=== PATIENT | female | born 1965 | race Caucasian/White ===

== ENCOUNTER 2018-11-26 13:47 | Outpatient (REF) | payer OTHER, SELFPAY ==
[2018-11-26 21:54] LABS: ALT 32 U/L (12-78); AST 18 U/L (15-37); Albumin 3.5 g/dL (3.4-5.0); Alkaline Phosphatase 71 U/L (46-116); Anion Gap 9.6 mmol/L (3-11); BUN 15 mg/dL (7-18); Bilirubin, Total 0.3 mg/dL (0.2-1.0); CO2 27.4 mmol/L (21.0-32.0); CREATININE 0.78 mg/dL (0.55-1.02); Calcium 9.6 mg/dL (8.5-10.1); Chloride 101 mmol/L (98-107); Cholesterol 140 mg/dL (50-200); Glucose 144 mg/dL (70-100); HDL Cholesterol 41 mg/dL (40-60); LDL CHOLESTEROL 89 mg/dL (<100); Sodium 138 mmol/L (136-145); TSH 1.15 uIU/mL (0.358-3.74); Total Protein 7.7 g/dL (6.4-8.2); Triglyceride 96 mg/dL (30-150)
== END 2018-11-26 14:07 ==
LOC: NCHCN 13:47
PROVIDERS: PCP Family Medicine; Visit Provider Family Medicine
DX: I10 Essential (primary) hypertension (principal); E66.01 Morbid (severe) obesity due to excess calories
CPT/HCPCS: 80053; 80061; 83721; 84443

== ENCOUNTER 2020-07-20 09:58 | Outpatient (REF) | payer OTHER, SELFPAY ==
--- NOTE | 2020-07-20 10:00 | PAPFT_PTH ---
PATIENT: Jess Domingo LOC: [facility]#:[id number] AGE/SX: 55/F ROOM: RE07/20/[address]: Hermila Giron : 1965 BED: DIS: 07/20/2020 SPEC #: [id number] RECD: 07/23/20 13:08 STATUS: SHAMEKA RESadia #: [id number] CA: 07/20/20 10:[address]: Hermila Giron DEPT: [facility] Cytology RECD BY: Elizabeth Giles Tissues: 1 - CX/ENDOCX FOR PAP SMEARS Procedures: PAP THIN PREP/[facility] Screening HPV DNA PROBE Comments: [id number] ([id number] GRAFORD#)
[2020-07-20 22:04] LABS: ALT 34 U/L (14-59); AST 23 U/L (15-37); Albumin 3.6 g/dL (3.4-5.0); Alkaline Phosphatase 81 U/L (46-116); Anion Gap 7.2 mmol/L (3-11); BUN 14 mg/dL (7-18); Bilirubin, Total 0.3 mg/dL (0.2-1.0); CO2 28.8 mmol/L (21.0-32.0); CREATININE 0.88 mg/dL (0.55-1.02); Chloride 102 mmol/L (98-107); Glucose 179 mg/dL (74-106); Potassium 4.2 mmol/L (3.5-5.1); Sodium 138 mmol/L (136-145); Total Protein 7.7 g/dL (6.4-8.2)
[2020-07-20 22:09] LABS: Hemoglobin A1C 7.8 % (<5.7)
[2020-07-20 22:35] LABS: COMMENT (LAB VIEW ONLY) 38.91 mg/dL; Microalb ug/mg Crea 4.1 ug/mg Cr
[2020-07-20 22:36] LABS: Calculated LDL 82 mg/dL (<100); Cholesterol 141 mg/dL (<200); HDL Cholesterol 39 mg/dL (40-60); Triglyceride 103 mg/dL (<150)
[2020-07-20 23:17] LABS: Vitamin D 25 Total 28.7 ng/ml (30-100)
== END 2020-07-20 10:18 ==
LOC: NCHCN 09:58
PROVIDERS: PCP Family Medicine; Visit Provider Family Medicine
DX: Z00.00 Encounter for general adult medical examination without abnormal findings (principal); I10 Essential (primary) hypertension; E11.9 Type 2 diabetes mellitus without complications; E78.5 Hyperlipidemia, unspecified; R87.610 Atypical squamous cells of undetermined significance on cytologic smear of cervix (ASC-US); R87.810 Cervical high risk human papillomavirus (HPV) DNA test positive; E66.01 Morbid (severe) obesity due to excess calories; E66.8 Other obesity
CPT/HCPCS: 80053; 80061; 82306; 88142; 82043; 82570; 83036; 87624

== ENCOUNTER 2020-10-26 17:39 | Outpatient (REF) | payer OTHER, SELFPAY ==
--- NOTE | 2020-10-26 15:00 | ENDOMET_PTH ---
PATIENT: Jess Domingo LOC: [facility] U#:[id number] AGE/SX: 55/F ROOM: RE10/26/[address]: Hermila Giron : 1965 BED: DIS: 10/26/2020 SPEC #: [id number] RECD: 10/29/20 12:29 STATUS: SHAMEKA RESadia #: [id number] CA: 10/26/20 15:[address]: Hermila Giron DEPT: Surgical Specimen RECD BY: Elizabeth Giles Tissues: 1 - ENDOMETRIUM BX/MARIA ESTHER Procedures: GROSS AND MICRO LEVEL 4 Comments: [id number]
== END 2020-10-26 17:40 | disposition home or self-care (01) ==
LOC: NCHCN 17:39
PROVIDERS: PCP Family Medicine; Visit Provider Family Medicine
DX: R87.89 Other abnormal findings in specimens from female genital organs (principal)
CPT/HCPCS: 88305

== ENCOUNTER 2021-07-30 17:47 | Outpatient (REF) | payer OTHER, SELFPAY ==
--- NOTE | 2021-07-30 15:50 | PAPFT_PTH ---
PATIENT: Jess Domingo LOC: [facility] U#:[id number] AGE/SX: 56/F ROOM: RE07/30/[address]: Hermila Giron : 1965 BED: DIS: 07/30/2021 SPEC #: [id number] RECD: 07/31/21 12:53 STATUS: SHAMEKA REQ #: [id number] CA: 07/30/21 15:[address]: Hermila Giron [facility] Cytology RECD BY: Elizabeth Giles Tissues: 1 - CX/ENDOCX FOR PAP SMEARS Procedures: PAP THIN PREP/[facility] Screening HPV DNA PROBE Comments: [id number] (HPV 16 & 18/45)
== END 2021-07-30 17:48 | disposition home or self-care (01) ==
LOC: LBN 17:47
PROVIDERS: PCP Family Medicine; Visit Provider Family Medicine
DX: Z12.4 Encounter for screening for malignant neoplasm of cervix (principal); Z11.51 Encounter for screening for human papillomavirus (HPV); R87.810 Cervical high risk human papillomavirus (HPV) DNA test positive
CPT/HCPCS: 88142; 87624

== ENCOUNTER 2022-01-01 13:51 | Outpatient (REF) | payer OTHER, SELFPAY ==
[2022-01-01 22:40] LABS: Anion Gap 9.4 mmol/L (3-11); BUN 17 mg/dL (7-18); CO2 27.6 mmol/L (21.0-32.0); CREATININE 0.7 mg/dL (0.55-1.02); Calcium 9.1 mg/dL (8.5-10.1); Chloride 102 mmol/L (98-107); Glucose 203 mg/dL (74-106); Potassium 4.3 mmol/L (3.5-5.1); Sodium 139 mmol/L (136-145)
== END 2022-01-01 13:52 | disposition home or self-care (01) ==
LOC: NCHCN 13:51
PROVIDERS: PCP Family Medicine; Visit Provider Family Medicine
DX: Z79.899 Other long term (current) drug therapy (principal)
CPT/HCPCS: 80048

== ENCOUNTER 2022-04-09 21:02 | Outpatient (REF) | payer OTHER, SELFPAY ==
[2022-04-09 22:13] LABS: COMMENT (LAB VIEW ONLY) 49.92 mg/dL; Microalb ug/mg Crea 6.6 ug/mg Cr
== END 2022-04-09 21:03 | disposition home or self-care (01) ==
LOC: NCHCN 21:02
PROVIDERS: PCP Family Medicine; Visit Provider Family Medicine
DX: E11.8 Type 2 diabetes mellitus with unspecified complications (principal)
CPT/HCPCS: 82043; 82570

== ENCOUNTER 2022-11-05 10:48 | Outpatient (REF) | payer OTHER, SELFPAY ==
--- NOTE | 2022-11-05 17:50 | PAPFT_PTH ---
PATIENT: Jess Domingo LOC: [facility]#:[id number] AGE/SX: 57/F ROOM: RE11/05/[address]: Hermila Giron : 1965 BED: DIS: 11/05/2022 SPEC #: [id number] RECD: 11/06/22 12:40 STATUS: SHAMEKA REQ #: [id number] CA: 11/05/22 17:[address]: Hermila Giron DEPT: [facility] Cytology RECD BY: Elizabeth Giles Tissues: 1 - CX/ENDOCX FOR PAP SMEARS Procedures: PAP THIN PREP/UVM Screening HPV DNA PROBE Comments: [id number] (HPV 16 & 18/45)
--- OUTSIDE RECORDS SUMMARY | 2022-11-06 10:50 | XMS_ITS | Continuity of Care Document ---
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 Role Phone Hermila Howe Primary Care Physici an [facility] Date(s[facility] 10/29/22 - 10/29/[address] [address] Discharge Disposition: Home or Self Care Attending Physician: Hemrila Howe MD Admitting Physician: Hermila Howe MD Referring Physician: Hermila Howe MD Allergies, Adverse Reactions, Alerts No Known Medication Allergies Substance Reaction Severity Status Kiwi Severe Active Immunizations Given and Recorded Vaccine Date Status Refusal Reason SARS-CoV-2 (COVID-19) mRNA-1273 vaccine 12/21/20 R ecorded SARS-CoV-2 (COVID-19) mRNA-1273 vaccine 11/23/20 R ecorded influenza virus vaccine, live 05/23/20 Recorded Medications albuterol 90 mcg/inh aerosol inhaler Start Date: 03/19/22 Status: Ordered atorvastatin 10 mg oral tablet 10 mg = 1 tab, Oral, Daily, # 30 tab, 0 Refill(s) Start Date: 08/29/22 Status: Ordered BD PEN NEEDLE/MINI/ULTRA- [id number] MIS BD PEN NEEDLE/MINI/ULTRA- [id number] MIS, use one new pen needle for each three times daily subcutaneous injection. Start Date: 03/19/22 Status: Ordered CPAP supplies CPAP supplies, dispense all CPAP supplies as needed. She is using a Dreamstation 2 set at 9-12 cm [place], Supply, See instructions, # 1 EA, 0 Refill(s) Start Date: 03/24/22 Status: Ordered lisinopril-hydroCHLOROthiazide 20 mg-12.5 mg oral tablet Start Date: 03/19/22 Status: Ordered MetFORMIN (Eqv-Glucophage XR) 500 mg oral tablet, extended release Start Date: 03/19/22 Status: Ordered ONE TOUCH VERIO TEST ST(NEW)100S ONE TOUCH VERIO TEST ST(NEW)100S, test twice a day Start Date: 03/19/22 Status: Ordered Tresiba FlexTouch 100 units/mL subcutaneous solution 120, Daily, 0 Refill(s) Start Date: 08/29/22 Status: Ordered Victoza 18 mg/3 mL subcutaneous solution Start Date: 03/19/22 Status: Ordered Problem List Condition Confirmation Course Effective Dates Status Health St atus Informant Allergic rhinitis Confirmed Active Anemia Confirmed Active Atopic dermatitis Confirmed Active Dyslipidemia Confirmed Active Essential hypertension Confirmed Active Morbid obesity Confirmed Active Obstructive sleep apnea syndrome Confirmed Active Periodic limb movement disorder Confirmed Active Restless legs Confirmed Active Type 2 diabetes mellitus Confirmed 11/12/20 Active Procedures Procedure Date Related Diagnosis Body Site Status Colonoscopy 09/07/22 Completed Colonoscopy Completed Lymph node removed near collar bone Completed Social History Social History Type Response Tobacco Former tobacco user Tobacco Use:. 1 Sex Female 1quit 30+ years ago Patient Care team information Care Team Personnel Name: Mack Hermila Ramírez MD Position: No Access Member Role: Primary Care Physician Address: Address: [address] [address]- Care Team Related Persons Name: MANDI SINGLETARY Address: Home Name: RBEECCA DE LEÓN Address: Home [address] [place] [phone] Name: KATERYNA RIVERA Address: Home
--- OUTSIDE RECORDS SUMMARY | 2022-11-06 10:50 | XMS_ITS | Continuity of Care Document ---
Author Name Unknown Organization 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 Name Role Phone Hermila Howe Primary Care Physici an Encounter [facility] [id number] Date(s): 09/08/22 - 09/08/[address] [address] Encounter Diagnosis Diverticulosis of large intestine without perforation or abscess without bleeding(Final) - Type 2 diabetes mellitus without complications(Final) - Family history of malignant neoplasm of digestive organs(Final) - Personal history of colonic polyps(Final) - Discharge Disposition: Home or Self Care Attending Physician: Wilson Orozco MD Admitting Physician: Wilson Orozco MD Referring Physician: Hermila Howe MD Allergies, Adverse Reactions, Alerts No Known Medication Allergies Substance Reaction Severity Status Kiwi Severe Active Functional Status 09/08/22 ADLs Independent Recent Travel History No recent travel Other exposure to Infectious Disease Non e Immunizations Given and Recorded Vaccine Date Status [...] Date: 08/29/22 Status: Ordered BD PEN NEEDLE/MINI/ULTRA- [id number] MIS BD PEN NEEDLE/MINI/ULTRA- [id number] MIS, use one new pen needle for each three times daily subcutaneous injection. Start Date: 03/19/22 Status: Ordered CPAP supplies CPAP supplies, dispense all CPAP supplies as needed. She is using a Dreamstation 2 set at 9-12 cm [place], Supply, See instructions, # 1 EA, 0 [...] Date Related Diagnosis Body Site Status Colonoscopy Completed Lymph node removed near collar bone Completed Results Laboratory List Name Date Glucose POCT 09/08/22 Most recent to oldest [Reference Range]: 1 Glucose POC [74-106 mg/dL] 86 mg/dL (09/08/22 9:16 AM) Vital Signs Most recent to oldest [Reference Range]: 1 2 3 Temperature Oral [35.8-37.3 Deg C] 36.4 Deg C (09/08/22 9:24 AM) Temperature Oral (DegF) [96.4-99.1 Deg F] 97.52 Deg F (09/08/22 9:24 AM) Temperature Temporal Artery [36-38 Deg C] 36.1 Deg C (09/08/22 10:25 AM) Temperature Temporal Artery (DegF) [97.3-100 Deg F] 96.98 Deg F *LOW* (09/08/22 10:25 AM) Peripheral Pulse Rate [60-100 bpm] 86 bpm (09/08/22 11:10 AM) 79 bpm (09/08/22 11:00 AM) 75 bpm (09/08/22 10:45 AM) Heart Rate Monitored [60-100 bpm] 77 bpm (09/08/22 11:10 AM) 80 bpm (09/08/22 11:00 AM) 75 bpm (09/08/22 10:45 AM) Respiratory Rate [12-24 br/min] 27 br/min *HI* (09/08/22 11:10 AM) 15 br/min (09/08/22 11:00 AM) 21 br/min (09/08/22 10:45 AM) Blood Pressure [90-140/60-90 mmHg] 145/82mmHg *HI* (09/08/22 11:10 AM) 122/78mmHg (09/08/22 11:00 AM) 102/48mmHg (09/08/22 10:45 AM) Mean Arterial Pressure, Cuff [65-140 mmHg] 103 mmHg (09/08/22 11:10 AM) 93 mmHg (09/08/22 11:00 AM) 66 mmHg (09/08/22 10:45 AM) Blood Pressure Location Right arm (09/08/22 9:24 AM) Blood Pressure Method Automatic (09/08/22 9:24 AM) Weight 152.2 kg (09/08/22 9:24 AM) Height 170 cm (09/08/22 9:24 AM) Social History Social History Type Response Tobacco Former tobacco user Tobacco Use:. 1 Sex Female 1quit 30+ years ago Hospital Discharge Instructions Patient Education 09/08/2022 10:07:52 Diverticulosis Diverticulosis Diverticulosis is a condition that develops when small pouches (diverticula) form in the wall of the large intestine (colon). The colon is where water is absorbed and stool (feces) is formed. The pouches form when the inside layer of the colon pushes through weak spots in the outer layers of the colon. You may have a few pouches or many of them. The pouches usually do not cause problems unless they become inflamed or infected. When this happens, the condition is called diverticulitis. What are the causes? The cause of this condition is not known. What increases the risk? The following factors may make you more likely to develop this condition: ??? Being older than age 60. Your risk for this condition increases with age. Diverticulosis is rare among people younger than age 30. By age 80, many people have it. ??? Eating a low-fiber diet. ??? Having frequent constipation. ??? Being overweight. ??? Not getting enough exercise. ??? Smoking. ??? Taking ytcj-atd-trlqgsc pain medicines, like aspirin and ibuprofen. ??? Having a family history of diverticulosis. What are the signs or symptoms? In most people, there are no symptoms of this condition. If you do have symptoms, they may include: ??? Bloating. ??? Cramps in the abdomen. ??? Constipation or diarrhea. ??? Pain in the lower left side of the abdomen. How is this diagnosed? Because diverticulosis usually has no symptoms, it is most often diagnosed during an exam for othercolon problems. The condition may be diagnosed by: ??? Using a flexible scope to examine the colon (colonoscopy). ??? Taking an X-ray of the colon after dye has been put into the colon (barium enema). ??? Having a CT scan. How is this treated? You may not need treatment for this condition. Your health care provider may recommend treatment toprevent problems. You may need treatment if you have symptoms or if you previously had diverticulitis. Treatment may include: ??? Eating a high-fiber diet. ??? Taking a fiber supplement. ??? Taking a live bacteria supplement (probiotic). ??? Taking medicine to relax your colon. Follow these instructions at home: Medicines ??? Take orjx-uhs-avtvrut and prescription medicines only as told by your health care provider. ??? If told by your health care provider, take a fiber supplement or probiotic. Constipation prevention Your condition may cause constipation. To prevent or treat constipation, you may need to: ??? Drink enough fluid to keep your urine pale yellow. ??? Take sfca-lam-gtzcazu or prescription medicines. ??? Eat foods that are high in fiber, such as beans, whole grains, and fresh fruits and vegetables. ??? Limit foods that are high in fat and processed sugars, such as fried or sweet foods. General instructions ??? Try not to strain when you have a bowel movement. ??? Keep all follow-up visits as told by your health care provider. This is important. Contact a health care provider if you: ??? Have pain in your abdomen. ??? Have bloating. ??? Have cramps. ??? Have not had a bowel movement in 3 days. Get help right away if: ??? Your pain gets worse. ??? Your bloating becomes very bad. ??? You have a fever or chills, and your symptoms suddenly get worse. ??? You vomit. ??? You have bowel movements that are bloody or black. ??? You have bleeding from your rectum. Summary ??? Diverticulosis is a condition that develops when small pouches (diverticula) form in the wall of the large intestine (colon). ??? You may have a few pouches or many of them. ??? This condition is most often diagnosed during an exam for other colon problems. ??? Treatment may include increasing the fiber in your diet, taking supplements, or taking medicines. This information is not intended to replace advice given to you by your health care provider. Make sure you discuss any questions you have with your health care provider. Document Revised: 03/15/2020 Document Reviewed: 03/15/2020 [email or web address] Patient Education ?? 2021 [employer]. 09/08/2022 10:03:19 ss colonoscopy discharge instructions (CUSTOM) COLONOSCOPY / SIGMOIDOSCOPY Following day: Return to full activity, including work. Diet: Eat and drink normally, unless instructed otherwise. Treatment for common after affects: Mild abdominal pain, bloating, or excessive gas: Rest, eat lightly and use a heating pad. Symptoms to watch for and report to your physician: SEVERE abdominal pain or bloating. Fever within 24 hours after procedure. A large amount of rectal bleeding. (A small amount of blood from the rectum is not serious, especially if hemorrhoids are present.) If you have had a Colonoscopy: Do not attempt to drive a vehicle or operate power equipment of any kind for at least 24 hours after discharge from the hospital. Do not consume alcoholic beverages or other mood-altering drugs on the day of surgery. Mild irritation at needle site: Apply warm, moist pack to area for 20 minutes four times a day for 2-3 days. Call physician if persistent redness and/or drainage at needle site. In the event of any problems after surgery, do not hesitate to contact your doctor, [facility] , or the Emergency Room at [phone]. Diagnosis: Diverticulosis Doctor: Kat Discharge instructions * Hazel Callejas: PERFORM Event Display: Discharge Instructions Authored Date: [id number] EPIFANIO SINGLETARY :1965 Age:57 years Sex:Female Visit Date:09/08/2022 Primary Care Physician: Mack CHARLES, Hermila Sam MD Hospital Discharge Instructions We would like to thank you for allowing us to assist you with your healthcare needs. The following includes patient education materials and information regarding your injury/illness. After you leave the hospital, you may get your health information including your test results, physician notes and discharge information by accessing your Patient Portal. Your Next Steps Discharge Orders Discharge Patient Instructions, Rest today. Resume diet and activities as tolerated. Education Materials Diverticulitis Diverticulitis is when small pouches in your colon (large intestine) get infected or swollen. This causes pain in the belly (abdomen) and watery poop (diarrhea). These pouches are called diverticula. The pouches form in people who have a condition called diverticulosis. What are the causes? This condition may be caused by poop (stool) that gets trapped in the pouches in your colon. The poop lets germs (bacteria) grow in the pouches. This causes the infection. What increases the risk? You are more likely to get this condition if you have small pouches in your colon. The risk is higher if: ? You are overweight or very overweight (obese). ? You do not exercise enough. ? You drink alcohol. ? You smoke or use products with tobacco in them. ? You eat a diet that has a lot of red meat such as beef, pork, or villatoro. ? You eat a diet that does not have enough fiber in it. ? You are older than 40 years of age. What are the signs or symptoms? Pain in the belly. Pain is often on the left side, but it may be in other areas. ? Fever and feeling cold. ? Feeling like you may vomit. ? Vomiting. ? Having cramps. ? Feeling full. ? Changes to how often you poop. ? Blood in your poop. How is this treated? Most cases are treated at home by: ? Taking qjwn-ijn-zjggjak pain medicines. ? Following a clear liquid diet. ? Taking antibiotic medicines. ? Resting. Very bad cases may need to be treated at a hospital. This may include: ? Not eating or drinking. ? Taking prescription pain medicine. ? Getting antibiotic medicines through an IV tube. ? Getting fluid and food through an IV tube. ? Having surgery. When you are feeling better, your doctor may tell you to have a test to check your colon (colonoscopy). Follow these instructions at home: Medicines ? Take oayc-kuj-nrxlffv and prescription medicines only as told by your doctor. These include: ? Antibiotics. ? Pain medicines. ? Fiber pills. ? Probiotics. ? Stool softeners. ? If you were prescribed an antibiotic medicine, take it as told by your doctor. Do not stop taking the antibiotic even if you start to feel better. ? Ask your doctor if the medicine prescribed to you requires you to avoid driving or using machinery. Eating and drinking ? Follow a diet as told by your doctor. ? When you feel better, your doctor may tell you to change your diet. You may need to eat a lot of fiber. Fiber makes it easier to poop (have a bowel movement). Foods with fiber include: ? Berries. ? Beans. ? Lentils. ? Green vegetables. ? Avoid eating red meat. General instructions ? Do not use any products that contain nicotine or tobacco, such as cigarettes, e- cigarettes, and chewing tobacco. If you need help quitting, ask your doctor. ? Exercise 3 or more times a week. Try to get 30 minutes each time. Exercise enough to sweat and makeyour heart beat faster. ? Keep all follow-up visits as told by your doctor. This is important. Contact a doctor if: ? Your pain does not get better. ? You are not pooping like normal. Get help right away if: ? Your pain gets worse. ? Your symptoms do not get better. ? Your symptoms get worse very fast. ? You have a fever. ? You vomit more than one time. ? You have poop that is: ? Bloody. ? Black. ? Tarry. Summary ? This condition happens when small pouches in your colon get infected or swollen. ? Take medicines only as told by your doctor. ? Follow a diet as told by your doctor. ? Keep all follow-up visits as told by your doctor. This is important. This information is not intended to replace advice given to you by your health care provider. Make sure you discuss any questions you have with your health care provider. Document Revised: 05/28/2020 Document Reviewed: 05/28/2020 [email or web address] Patient Education ?? 2021 [employer]. COLONOSCOPY / SIGMOIDOSCOPY ? Following day: Return to full activity, including work. Diet: Eat and drink normally, unless instructed otherwise. ? Treatment for common after affects: Mild abdominal pain, bloating, or excessive gas: Rest, eat lightly and use a heating pad. ? Symptoms to watch for and report to your physician: SEVERE abdominal pain or bloating. ? Fever within 24 hours after procedure. ? A large amount of rectal bleeding. (A small amount of blood from the rectum is not serious, especially if hemorrhoids are present.) ? If you have had a Colonoscopy: Do not attempt to drive a vehicle or operate power equipment of any kind for at least 24 hours after discharge from the hospital. ? Do not consume alcoholic beverages or other mood-altering drugs on the day of surgery. ? Mild irritation at needle site: Apply warm, moist pack to area for 20 minutes four times a day for 2-3 days. ? Call physician if persistent redness and/or drainage at needle site. ? In the event of any problems after surgery, do not hesitate to contact your doctor, [facility] , or the Emergency Room at [phone]. Diagnosis: Diverticulosis Doctor: Kat Patient Name:EPIFANIO SINGLETARY I have received this information and my questions have been answered. Patient/Logistics And Planning Manager Name: Patient/Logistics And Planning Manager Signature: Relationship to Patient: Witness Name/Signature: Date: Electronically Signed on: 09/08/2022 11:04 ESTSigned by:CAROLINA History and physical note * Massiel BRANTLEY, Wilson Kline MD: PERFORM Event Display: History and Physical Authored Date: [id number] EPIFANIO SINGLETARY :1965 Age:57 years Sex:Female Visit Date:09/08/2022 Primary Care Physician: Mack CHARLES, Hermila Sam MD History of Present Illness 57-year-old female??seen for a screening colonoscopy.?? The patient has??a family history of colon cancer in her mother at a young age??which was fatal.?? Is also had polyps in the past.?? Her last colonoscopy 5 years ago was normal. Review of Systems No history of chest pain, pressure, previous VT.?? Patient has known sleep apnea??but has no cough or sputum production.?? She has had no abdominal pain or bleeding. Physical Exam Vitals & Measurements T:??36.4?C ??(Oral)?? HR:??82??(Peripheral)?? RR:??17?? BP:??117/91?? SpO2:??96%?? HT:??170??cm?? WT:??152.2??kg?? Pain Score:??2?? O2 Therapy:??Room air?? Skin warm and dry, neck supple without adenopathy.?? Lungs clear, heart regular. ??Abdomen soft andnontender. Assessment/Plan Ordered: Obtain Surgical Consent, 09/08/22 9:09:00 EST, Colonoscopy Patient with strong family history of colon cancer seen for screening colonoscopy.?? With her sleepapnea and morbid obesity??she is going to do this with anesthesia.?? Procedure, indications and risks discussed. ??Consent signed and on the chart. Problem List/Past Medical History Ongoing Allergic rhinitis Anemia Atopic dermatitis Dyslipidemia Essential hypertension Morbid obesity Obstructive sleep apnea syndrome Periodic limb movement disorder Restless legs Type 2 diabetes mellitus Historical No qualifying data Procedure/Surgical History ???Colonoscopy???Lymph node removed near collar bone Medications Inpatient Dextrose 5% in Lactated Ringers Injection 1,000 mL, 1000 mL, IV Home albuterol 90 mcg/inh aerosol inhaler atorvastatin 10 mg oral tablet, 10 mg= 1 tab, Oral, Daily BD PEN NEEDLE/MINI/ULTRA- [id number] MIS CPAP supplies, See instructions lisinopril-hydroCHLOROthiazide 20 mg-12.5 mg oral tablet MetFORMIN (Eqv-Glucophage XR) 500 mg oral tablet, extended release ONE TOUCH VERIO TEST ST(NEW)100S Tresiba FlexTouch 100 units/mL subcutaneous solution, 120, Daily Victoza 18 mg/3 mL subcutaneous solution Allergies Kiwi No Known Medication Allergies Social History Electronic Cigarette/Vaping Electronic Cigarette Use: Never. Tobacco Former tobacco user Tobacco Use:.- Comments: quit 30+ years ago Family History Family history of cancer: Mother. Heart disease: Sister. Pancreatic cancer: Father. Immunizations Vaccine Date Status SARS-CoV-2 (COVID-19) mRNA-1273 vaccine 12/21/2020 Recorded SARS-CoV-2 (COVID-19) mRNA-1273 vaccine 11/23/2020 Recorded influenza virus vaccine, live 05/23/2020 Recorded Electronically Signed on 09/08/22 09:59 AM [facility] * Diane Bliss: PERFORM Event Display: History and Physical Authored Date: [id number] GEMINI EPIFANIO M :1965 Age:57 years Sex:Female Primary Care Physician: Mack CHARLES, Hermila Sam MD Family history of colon cancer in mother and grandmother. Previous colonoscopy reports have been scanned into [employer] Electronically Signed on 08/06/22 03:01 PM Diane Bliss Patient Care team information Personnel Name: Hermila Howe MD Address: Address: [id number] [place] [address]
== END 2022-11-05 10:49 | disposition home or self-care (01) ==
LOC: NCHCN 10:48
PROVIDERS: PCP Family Medicine; Visit Provider Family Medicine
DX: Z12.4 Encounter for screening for malignant neoplasm of cervix (principal); Z11.51 Encounter for screening for human papillomavirus (HPV); R87.810 Cervical high risk human papillomavirus (HPV) DNA test positive
CPT/HCPCS: 88142; 87624

== ENCOUNTER 2022-12-31 17:17 | Outpatient (REF) | payer OTHER, SELFPAY ==
[2022-12-31 22:33] LABS: Anion Gap 10.1 mmol/L (3-11); BUN 14 mg/dL (7-18); CO2 25.9 mmol/L (21.0-32.0); CREATININE 0.8 mg/dL (0.55-1.02); Calcium 9.2 mg/dL (8.5-10.1); Calculated LDL 64 mg/dL (<100); Chloride 103 mmol/L (98-107); Cholesterol 128 mg/dL (<200); Estimated GFR 85.35 (mL/min/1.73m2); Glucose 125 mg/dL (74-106); HDL Cholesterol 50 mg/dL (40-60); Potassium 3.8 mmol/L (3.5-5.1); Sodium 139 mmol/L (136-145); Triglyceride 70 mg/dL (<150)
== END 2022-12-31 17:18 | disposition home or self-care (01) ==
LOC: NCHCN 17:17
PROVIDERS: PCP Family Medicine; Visit Provider Family Medicine
DX: E78.5 Hyperlipidemia, unspecified (principal); E11.8 Type 2 diabetes mellitus with unspecified complications; E66.01 Morbid (severe) obesity due to excess calories
CPT/HCPCS: 80048; 80061

== ENCOUNTER 2023-04-01 18:53 | Outpatient (REF) | payer OTHER, SELFPAY ==
[2023-04-01 22:00] LABS: COMMENT (LAB VIEW ONLY) 59.88 mg/dL; Microalb ug/mg Crea 3.8 ug/mg Cr
== END 2023-04-01 18:54 | disposition home or self-care (01) ==
LOC: NCHCN 18:53
PROVIDERS: PCP Family Medicine; Visit Provider Family Medicine
DX: E11.8 Type 2 diabetes mellitus with unspecified complications (principal)
CPT/HCPCS: 82043; 82570

== ENCOUNTER 2024-07-27 15:26 | Outpatient (REF) | payer BC, SELFPAY ==
[2024-07-27 19:50] LABS: COMMENT (LAB VIEW ONLY) 36.02 mg/dL; Microalb ug/mg Crea 6.9 ug/mg Cr
== END 2024-07-27 15:27 | disposition home or self-care (01) ==
LOC: NCHCN 15:26
PROVIDERS: PCP Family Medicine; Visit Provider Family Medicine
DX: E11.8 Type 2 diabetes mellitus with unspecified complications (principal)
CPT/HCPCS: 82043; 82570

== ENCOUNTER 2024-08-09 14:58 | Outpatient (REF) | payer BC, SELFPAY ==
[2024-08-10 11:10] LABS: Lyme Ab w Rflx to Lyme Confirm Negative (Negative)
[2024-08-12 01:05] LABS: Anaplasma phagocytophilum Negative (Negative); B. miyamotoi PCR Negative (Negative); Babesia divergens/MO-1 Negative (Negative); Babesia duncani Negative (Negative); Babesia microti Negative (Negative); Ehrlichia chaffeensis Negative (Negative); Ehrlichia ewingii/canis Negative (Negative); Ehrlichia muris eauclairensis Negative (Negative)
== END 2024-08-09 14:59 | disposition home or self-care (01) ==
LOC: NCHCN 14:58
PROVIDERS: PCP Family Medicine; Visit Provider Nurse Practitioner Family
DX: R21 Rash and other nonspecific skin eruption (principal)
CPT/HCPCS: 87798; 86618

== ENCOUNTER 2024-08-22 12:37 | Outpatient (REF) | payer BC, SELFPAY ==
--- NOTE | 2024-08-22 09:00 | PAPFT_PTH ---
PATIENT: Jess Domingo LOC: [facility]#:[id number] AGE/SX: 59/F ROOM: RE08/22/[address]: Hermila Giron : 1965 BED: DIS: 08/22/2024 SPEC #: [id number] RECD: 08/22/24 17:35 STATUS: SHAMEKA REQ #: [id number] CA: 08/22/24 09:[address]: Hermila Giron [facility] Cytology RECD BY: Elizabeth Giles Tissues: 1 - CX/ENDOCX FOR PAP SMEARS Procedures: PAP THIN PREP/[facility] Screening HPV DNA PROBE Comments: [id number] (HPV 16 & 18/45)
== END 2024-08-22 12:38 | disposition home or self-care (01) ==
LOC: NCHCN 12:37
PROVIDERS: PCP Family Medicine; Visit Provider Family Medicine
DX: Z11.51 Encounter for screening for human papillomavirus (HPV) (principal); Z01.419 Encounter for gynecological examination (general) (routine) without abnormal findings
CPT/HCPCS: 88142; 87624

== ENCOUNTER 2025-05-15 11:32 | Outpatient (REF) | payer BC, SELFPAY ==
[2025-05-15 15:06] LABS: ALT 30 U/L (14-59); AST 20 U/L (15-37); Albumin 3.3 g/dL (3.4-5.0); Alkaline Phosphatase 86 U/L (46-116); Anion Gap 9.6 mmol/L (3-11); BUN 15 mg/dL (7-18); Bilirubin, Total 0.3 mg/dL (0.2-1.0); CO2 26.4 mmol/L (21.0-32.0); Calcium 9.5 mg/dL (8.5-10.1); Calculated LDL 65 mg/dL (<100); Chloride 103 mmol/L (98-107); Cholesterol 136 mg/dL (<200); Estimated GFR 98.34 (mL/min/1.73m2); Glucose 201 mg/dL (74-106); HDL Cholesterol 48 mg/dL (>or=50); Potassium 4.1 mmol/L (3.5-5.1); Sodium 139 mmol/L (136-145); Total Protein 7.7 g/dL (6.4-8.2); Triglyceride 119 mg/dL (<150)
== END 2025-05-15 11:33 | disposition home or self-care (01) ==
LOC: NCHCN 11:32
PROVIDERS: PCP Family Medicine; Visit Provider Family Medicine
DX: I10 Essential (primary) hypertension (principal); E78.5 Hyperlipidemia, unspecified
CPT/HCPCS: 80053; 80061

== ENCOUNTER 2025-08-03 20:58 | Outpatient (REF) | payer BC, SELFPAY | END 2025-08-03 20:59 | disposition home or self-care (01) | LOC: NCHCN 20:58 | PROVIDERS: PCP Family Medicine; Visit Provider Family Medicine | DX: E11.9 Type 2 diabetes mellitus without complications (principal) | CPT/HCPCS: 82043; 82570 ==